=== PATIENT | male | born 1980 | race Two or more races ===

== ENCOUNTER 2018-03-01 05:56 | Emergency (ER) | payer OTHER ==
[2018-03-01] MEDS ORDERED: ONDANSETRON 4 MG/2 ML VIAL ONE (06:30)
[2018-03-01] MEDS ORDERED: ONDANSETRON 4 MG/2 ML VIAL IVP ONE (06:32)
[2018-03-01] MEDS ORDERED: MECLIZINE HCL 25 MG TAB PO ONE (06:37)
[2018-03-01] MEDS ORDERED: LORazepam 2 MG/ML INJ IVP ONE (06:37)
[2018-03-01] MEDS ORDERED: NS 1,000 ML IV ONE (06:37)
[2018-03-01 06:48] LABS: PLATELET COUNT 291 10^3/uL (150-400)
--- NOTE | 2018-03-01 07:01 | EDPHY ---
H & P Stated Complaint: c/o dizziness/n/v/blurry vision on waking this am Source: Patient Exam Limitations: No limitations - Medical/Surgical History Hx Asthma: No Hx Chronic Respiratory Disease: No Hx Diabetes: No Hx Cardiac Disease: No Hx Renal Disease: No Hx Cirrhosis: No Hx Alcoholism: No Hx HIV/AIDS: No Hx Splenectomy or Spleen Trauma: No Other PMH: none - Social History Smoking Status: Current every day smoker <Ana Laura Granados - Last Filed: 03/01/18 07:25> <Rolando Mnauel - Last Filed: 03/01/18 10:18> Time Seen by Provider: 03/01/18 06:28 HPI/ROS: History obtained using family members and [place] language line diplomatic interpreter. HPI The patient presents with dizziness which awoke him from sleep at approximately 5:30 a.m. This morning. He says he feels very unsteady on his feet and is unable to walk independently. He was notably diaphoretic to his son this morning. He had difficulty walking. He complained of nausea. He also says that his vision is blurry. He describes pain in both of his ears with some tinnitus. He has no prior history of similar symptoms.. REVIEW OF SYSTEMS Constitutional: No fever, no chills. Eyes: No discharge. ENT: No sore throat. Cardiovascular: No chest pain, no palpitations. Respiratory: No cough, no shortness of breath. Gastrointestinal: No abdominal pain, no vomiting. Genitourinary: No hematuria. Musculoskeletal: No back pain. Skin: No rashes. Neurological: No headache. PMHx: Healthy Soc Hx: Drinks alcohol 3 days a week, here with his son, smokes cigarettes PHYSICAL General Appearance: Alert, uncomfortable appearing Eyes: Pupils equal and round no pallor or injection ENT, Mouth: Mucous membranes moist Respiratory: There are no retractions, lungs are clear to auscultation Cardiovascular: Regular rate and rhythm Gastrointestinal: Abdomen is soft and non-tender, no masses, bowel sounds normal Neurological: Alert and oriented x3, rotary nystagmus is present though most prominent on rightward gaze, cranial nerves 2-12 intact, normal finger to nose and heel to hodges testing, 5/5 strength in upper and lower extremities with no pronator drift Skin: Warm and dry, no rashes Musculoskeletal: Neck is supple non tender Extremities: symmetrical, full range of motion Psychiatric: Patient is oriented X 3, there is no agitation (Ana Laura Granados) Constitutional: Initial Vital Signs Temperature (C) 36.3 C 03/01/18 06:11 Heart Rate 69 03/01/18 06:11 Respiratory Rate 18 03/01/18 06:11 Blood Pressure 143/100 H 03/01/18 06:11 O2 Sat (%) 96 03/01/18 06:11 O2 Delivery Mode Room Air Allergies/Adverse Reactions: No Known Allergies Allergy (Unverified 03/01/18 06:15) Home Medications: Medication Instructions Recorded Meclizine HCl 25 mg PO TID #30 tablet 03/01/18 Medical Decision Making <Ana Laura Granados - Last Filed: 03/01/18 07:25> - Diagnostics Imaging: Discussed imaging studies w/ assistant mechanic Radiologist <Rolando Manuel - Last Filed: 03/01/18 10:18> - Diagnostics Imaging Results: Imaging Impressions Head CT 03/01/18 06:38 Impression: Asymmetry in appearance of the transverse sinuses, left larger. Normal variant versus dural venous sinus thrombosis. Recommend MR venography. The study was performed as an emergency on-call case and discussed by telephone with Dr. Ashley Banerjee at 7:00 AM hrs. The final interpretation is concordant with the original communication. Head MRA 03/01/18 06:58 Impression: 1. Acute infarct in the right cerebellar hemisphere, inferior lateral aspect. 2. Thrombosis of the right transverse sinus, sigmoid sinus, and proximal right jugular vein. Findings and recommendations discussed with Emergency Department physician, Dr. Rolando Manuel at 0 9:30 hour, 03/01/2018. Final report concurs with initial preliminary interpretation. CT head without contrast demonstrates left transverse sinus an superior sagittal sinus are dense, discussed with Dr. Matute of Radiology. (Ana Laura Granados) Differential Diagnosis: 37-year-old male with no significant past medical history presents with several hours of vertigo which she awoke with associated with tinnitus bilaterally, nausea, difficulty ambulating. On exam, he has normal vital signs, he has rotary nystagmus though normal finger to nose and heel to hodges testing without any other cerebellar signs present. The remainder of his neurologic exam is unremarkable. Differential diagnosis includes hemorrhagic stroke, ischemic stroke in cerebellar territory, peripheral vertigo due to BPPV or Meniere's disease. In the emergency department, IV line was established and the patient was treated with IV fluids, Zofran, Ativan, meclizine with minimal improvement in his symptoms. Labs were checked including CBC and chemistries in these were unremarkable. CT scan of head showed possible sinus thrombosis. Plan for MR V of his brain to further elucidate this. Patient was reassessed and I have ordered additional medication for his dizziness. At 7:30 a.m., the case is signed out to Dr. Manuel pending the patient's MRI and re-evaluation. If he has ongoing symptoms and is unable to ambulate or has an abnormal MRI he may require admission to the hospital. (Ana Laura Granados) Other Provider: 07:30 I assumed care of this patient from Dr. Granados pending MRI result. 09:[address] España, radiologist. MRI reveals right inferior cerebellar infarct. Right transverse sinus and jugular vein appear occluded. 09:42 Alerted commercial technician of stroke. Plan to consult with neurology. Plan for telemedicine consult with park interpreter. 09:[address] Bansal, neurologist at [facility]. He will evaluate the patient via telemedicine. Plan to transfer patient to [facility] for further management. Dr. Bansal accepts admission for right cerebellar infarct. Plan to administer Heparin drip per protocol. 10:[address] Bansal. Plan to transfer to [facility] as above via ground transport. (Rolando Manuel) - Data Points Laboratory Results: Laboratory Results 03/01/18 06:23 03/01/18 06:23 03/01/1818 03/01/18 06:23 06:23 06:23 WBC 7.67 10^3/uL 10^3/uL (3.80-9.50) RBC 5.95 10^6/uL 10^6/uL (4.40-6.38) Hgb 18.5 g/dL H g/dL (13.7-17.5) Hct 53.9 % H % (40.0-51.0) MCV 90.6 fL fL (81.5-99.8) MCH 31.1 pg pg (27.9-34.1) MCHC 34.3 g/dL g/dL (32.4-36.7) RDW 12.6 % % (11.5-15.2) Plt Count 291 10^3/uL 10^3/uL (150-400) MPV 9.9 fL fL (8.7-11.7) Neut % (Auto) 46.4 % % (39.3-74.2) Lymph % (Auto) 38.1 % % (15.0-45.0) Carbon % (Auto) 11.9 % % (4.5-13.0) Eos % (Auto) 2.1 % % (0.6-7.6) Baso % (Auto) 0.8 % % (0.3-1.7) Nucleat RBC Rel Count 0.0 % % (0.0-0.2) Absolute Neuts (auto) 3.57 10^3/uL 10^3/uL (1.70-6.50) Absolute Lymphs (auto) 2.92 10^3/uL 10^3/uL (1.00-3.00) Absolute Monos (auto) 0.91 10^3/uL H 10^3/uL (0.30-0.80) Absolute Eos (auto) 0.16 10^3/uL 10^3/uL (0.03-0.40) Absolute Basos (auto) 0.06 10^3/uL 10^3/uL (0.02-0.10) Absolute Nucleated RBC 0.00 10^3/uL 10^3/uL (0-0.01) Immature Gran % 0.7 % % (0.0-1.1) Immature Gran # 0.05 10^3/uL 10^3/uL (0.00-0.10) PT Pending INR Pending APTT Pending Sodium 145 mEq/L mEq/L (135-145) Potassium 4.1 mEq/L mEq/L (3.3-5.0) Chloride 106 mEq/L mEq/L (97-110) Carbon Dioxide 25 mEq/l mEq/l (22-31) Anion Gap 14 mEq/L mEq/L (8-16) BUN 12 mg/dL mg/dL (7-23) Creatinine 0.9 mg/dL mg/dL (0.7-1.3) Estimated GFR > 60 Glucose 158 mg/dL H mg/dL (70-100) Calcium 9.8 mg/dL mg/dL (8.5-10.4) Medications Given: Discontinued Medications Sodium Chloride (Ns) 1,000 mls @ 0 mls/hr IV EDNOW ONE; Wide Open PRN Reason: Protocol Stop: 03/01/18 06:38 Last Admin: 03/01/18 06:51 Dose: 1,000 mls Lorazepam (Ativan Injection) 1 mg IVP EDNOW ONE Stop: 03/01/18 06:38 Last Admin: 03/01/18 06:51 Dose: 1 mg Meclizine HCl (Meclizine Hcl) 25 mg PO EDNOW ONE Stop: 03/01/18 06:38 Last Admin: 03/01/18 06:51 Dose: 25 mg Metoclopramide HCl (Reglan Injection) 10 mg IVP EDNOW ONE Stop: 03/01/18 07:16 Last Admin: 03/01/18 07:20 Dose: 10 mg Ondansetron HCl (Zofran) 4 mg IVP EDNOW ONE Stop: 03/01/18 06:33 Last Admin: 03/01/18 06:32 Dose: 4 mg Departure <Ana Laura Granados - Last Filed: 03/01/18 07:25> <Rolando Manuel - Last Filed: 03/01/18 10:18> - Departure Disposition: Acute Care Hospital [facility] Clinical Impression: Vertigo, Occlusion of right anterior inferior cerebellar artery with infarction Condition: Fair Referrals: [facility] [Other] - As per Instructions Prescriptions: Meclizine HCl 25 mg PO TID #30 tablet Print Language: Bur[place]ian
[2018-03-01] MEDS ORDERED: METOCLOPRAMIDE 10 MG/2 ML VIAL IVP ONE (07:15)
[2018-03-01] MEDS ORDERED: HEPARIN 10,000 UNIT/10 ML MDV (1,000 UNIT/ML) IVP ONE (09:50)
[2018-03-01] MEDS ORDERED: HEPARIN/DEXTROSE 500 ML IV ONE (09:50)
[2018-03-01 10:58] LABS: INR 0.95 (0.83-1.16); PROTIME(PATIENT) 12.9 SEC (12.0-15.0)
[2018-03-01 11:45] VITALS: BP 142/96
== END 2018-03-01 12:27 | disposition short-term general hospital (02) ==
DX: I63.541 Cerebral infarction due to unspecified occlusion or stenosis of right cerebellar artery (principal); E86.9 Volume depletion, unspecified; F17.210 Nicotine dependence, cigarettes, uncomplicated
CPT/HCPCS: 96365; 96366; J1644; J2060; J2405; J2765

== ENCOUNTER 2018-12-22 22:10 | Emergency (ER) | payer MEDICAID, OTHER ==
[2018-12-22] MEDS ORDERED: TRANEXAMIC ACID 1,000 MG/10 ML VIAL ONE (22:23)
[2018-12-22] MEDS ORDERED: OXYMETAZOLINE 30 ML NASAL SPRAY ONE (22:23)
--- NOTE | 2018-12-22 22:24 | EDPHY ---
H & P Stated Complaint: nosebleed x1 hour Time Seen by Provider: 12/22/18 22:22 HPI/ROS: History obtained using nib assembler at the bedside. HPI The patient presents with nose bleed from his right naris which began about 30 min ago after picking his nose. He uses Plavix and aspirin daily. He has no prior history of nose bleeds. He tried applying pressure, however this did not work. REVIEW OF SYSTEMS 10 systems were reviewed and negative with the exception of the elements mentioned in the history of present illness. PMHx: History of ischemic cerebellar infarct now on Plavix and aspirin Soc Hx: Here with his family PHYSICAL General Appearance: Alert, no distress Eyes: Pupils equal and round no pallor or injection ENT, Mouth: Right naris with active bleeding, no source localized due to degree of bleeding, Mucous membranes moist Respiratory: Breathing comfortably Neurological: A&O, moves all extremities Skin: Warm and dry, no rashes Musculoskeletal: Neck is supple non tender Extremities: symmetrical, full range of motion Psychiatric: Patient is oriented X 3, there is no agitation Source: Patient Exam Limitations: No limitations - Personal History Current Tetanus/Diphtheria Vaccine: Yes - Medical/Surgical History Hx Asthma: No Hx Chronic Respiratory Disease: No Hx Diabetes: No Hx Cardiac Disease: No Hx Renal Disease: No Hx Cirrhosis: No Hx Alcoholism: No Hx HIV/AIDS: No Hx Splenectomy or Spleen Trauma: No Other PMH: CVA 2018, - Social History Smoking Status: Former smoker Constitutional: Initial Vital Signs Temperature (C) 36.4 C 12/22/18 22:11 Heart Rate 77 12/22/18 22:11 Respiratory Rate 18 12/22/18 22:11 Blood Pressure 109/69 12/22/18 22:11 O2 Sat (%) 99 12/22/18 22:11 O2 Delivery Mode Room Air Allergies/Adverse Reactions: No Known Allergies Allergy (Verified 12/22/18 22:14) Home Medications: Medication Instructions Recorded Aspirin 12/22/18 Atorvastatin Calcium 12/22/18 Clopidogrel Bisulfate 12/22/18 Medical Decision Making Procedures: NOSE BLEED Procedure: Epistaxis control. Indication: nosebleed not controlled by direct pressure. Risks, benefits, alternatives discussed with patient and consent obtained. The right nares was anesthetized with Afrin. The anterior epistaxis was identified. The patient was treated with packing. A cotton ball saturated with TXA was inserted and remained in place for 20 min and then removed by me. Following the procedure the patient was re-examined and the bleeding was well controlled. The patient tolerated the procedure well. The procedure was performed by myself. Differential Diagnosis: This is a 38-year-old male with history of cerebellar infarct now on Plavix and aspirin who presents with nose bleed for the last 30 min which began after picking his nose, prior history of anticoagulation use. - Data Points Medications Given: Discontinued Medications Oxymetazoline HCl (Afrin Nasal [place]) 2 sprays EACHNARE EDNOW ONE Stop: 12/22/18 22:33 Last Admin: 12/22/18 22:33 Dose: 2 spray Tranexamic Acid (Cyklokapron) 500 mg TP EDNOW ONE Stop: 12/22/18 22:33 Last Admin: 12/22/18 22:33 Dose: 500 mg Departure - Departure Disposition: Home, Routine, Self-Care Clinical Impression: Acute anterior epistaxis Condition: Good Instructions: Nosebleed (ED) Additional Instructions: If the bleeding begins again, you should use the nose clamp for 15 min and use the Afrin. I have given you the phone number for the merchandiser retail representative who you can follow up with if you have any more problems with her nose. Si el sangrado comienza nuevamente, debe usar la pinza nasal juaquin 15 minutos y usar el Afrin. Le he dado el nmero de telfono del otorrinolaringlogo con el que puede hacer un seguimiento si tiene ms problemas con la nariz. Referrals: Tracy Smith MD [Medical Doctor] - As per Instructions Print Language: Ukrainian
[2018-12-22] MEDS ORDERED: TRANEXAMIC ACID 1,000 MG/10 ML VIAL TP ONE (22:32)
[2018-12-22] MEDS ORDERED: OXYMETAZOLINE 30 ML NASAL SPRAY EACHNARE ONE (22:32)
[2018-12-22 23:26] VITALS: BP 100/71
== END 2018-12-22 23:26 | disposition home or self-care (01) ==
PROC: 2Y41X5Z Packing of Nasal Region using Packing Material (ICD-10-PCS; principal; 2018-12-22)
DX: R04.0 Epistaxis (principal); Z79.899 Other long term (current) drug therapy